=== PATIENT | female | born 1985 | race Caucasian/White ===

== ENCOUNTER 2021-05-16 09:00 | Emergency (ER) | payer MEDICAID ==
[~2021-05-16] VITALS: Ht 154.9 cm; Wt 75.7 kg
[2021-05-16] MEDS ORDERED: ACETAMINOPHEN 500 MG TABLET PO ONE (10:00)
[2021-05-16 10:38] LABS: BILIRUBIN,URINE NEGATIVE (NEGATIVE); GLUCOSE, URINE (UA) NEGATIVE (NEGATIVE); KETONES,URINE NEGATIVE (NEGATIVE); LEUKOCYTE ESTERASE ,URINE MODERATE (NEGATIVE); NITRATE,URINE POSITIVE (NEGATIVE); OCCULT BLOOD,URINE LARGE (NEGATIVE); PROTEIN,URINE SEE CONFIRM (NEGATIVE); UROBILINOGEN,URINE 0.2 mg/dL (<=1.0)
[2021-05-16 10:40] LABS: APPEARANCE,URINE CLOUDY (CLEAR)
[2021-05-16 10:46] VITALS: BP 128/80
[2021-05-16] MEDS ORDERED: PHEN-1103 PO (10:47)
[2021-05-16] MEDS ORDERED: MACR100 PO (10:47)
[2021-05-16 10:51] LABS: BACTERIA,URINE Moderate /HPF (None Seen); SQUAMOUS EPITHELIAL CELL,UR Few /LPF (None Seen); SULFOSALICYLIC ACID,URINE 3+ (Negative); WBC,URINE 51-100 /HPF (0-5)
[2021-05-16 10:52] LABS: RENAL EPITHELIAL CELLS,URINE Rare /LPF (None Seen)
== END 2021-05-16 11:21 | disposition home or self-care (01) ==
LOC: EMS 09:05
DX: N39.0 Urinary tract infection, site not specified (principal)
CPT/HCPCS: 81001; 81002; 84703; 99283